=== PATIENT | female | born 1985 | race Caucasian/White ===

== ENCOUNTER 2021-10-20 13:41 | Emergency (ER) | payer BC ==
[~2021-10-20] VITALS: Ht 167.6 cm; Wt 68.2 kg
[2021-10-20 14:47] LABS: BASOPHILS # (AUTO) 0.1 X10'3 (0-0.2); BASOPHILS % (AUTO) 0.7 % (0-1); EOSINOPHILS # (AUTO) 0.1 X10'3 (0-0.9); EOSINOPHILS % (AUTO) 1.3 % (0-6); HEMATOCRIT 42.3 % (35.0-45.0); HEMOGLOBIN 14.2 g/dl (12.0-16.0); LYMPHOCYTES # (AUTO) 1.5 X10'3 (1.1-4.8); LYMPHOCYTES % (AUTO) 22.4 % (21-51); MEAN CORPUSCULAR HEMOGLOBIN 27.1 PG (27.0-31.0); MEAN CORPUSCULAR HGB CONC 33.6 g/dL (33.0-36.5); MEAN CORPUSCULAR VOLUME 80.7 FL (78-98); MEAN PLATELET VOLUME 9.6 FL (7.4-10.4); MONOCYTES # (AUTO) 0.6 X10'3 (0-0.9); MONOCYTES % (AUTO) 8.3 % (2-12); NEUTROPHILS # (AUTO) 4.6 X10'3 (1.8-7.7); NEUTROPHILS % (AUTO) 67.3 % (42-75); PLATELET COUNT 282 X10'3 (140-440); RED BLOOD COUNT 5.24 X10'6 (4.20-5.60); RED CELL DISTRIBUTION WIDTH 15.1 % (11.5-14.5); WHITE BLOOD COUNT 6.9 X10'3 (4.5-11.0)
[2021-10-20 14:58] LABS: ALBUMIN 3.8 G/DL (3.4-5.0); ALBUMIN/GLOBULIN RATIO 0.9 (1.1-1.5); ALKALINE PHOSPHATASE 122 IU/L (46-116); ANION GAP 16 (8-16); ASPARTATE AMINO TRANSFERASE 134 U/L (10-37); BILIRUBIN,TOTAL 1.2 MG/DL (0.1-1.0); BLOOD UREA NITROGEN 12 MG/DL (7-18); BUN/CREATININE RATIO 14.5 (6.6-38.0); CALCIUM 9.2 MG/DL (8.5-10.1); CHLORIDE 104 MMOL/L (99-107); CREATININE 0.83 MG/DL (0.40-0.90); GLUCOSE 87 MG/DL (70-104); POTASSIUM 3.2 MMOL/L (3.5-5.1); SODIUM 141 MMOL/L (135-145); TOTAL CARBON DIOXIDE 21.5 MMOL/L (24-32); TOTAL PROTEIN 8.1 G/DL (6.4-8.2); eGFR 79 ML/MIN
[2021-10-20 15:07] LABS: ETHANOL < 0.010 GM/DL (0.0-0.010)
[2021-10-20] MEDS ORDERED: LORazepam 2 mg/ml vial IM ONE (15:15)
[2021-10-20 15:26] LABS: ALANINE AMINOTRANSFERASE 224 U/L (12-78)
[2021-10-20] MEDS ORDERED: NO HOME MEDS (15:42)
[2021-10-20 15:44] LABS: URINE HCG NEGATIVE (NEG)
[2021-10-20 15:47] LABS: CLARITY,URINE CLOUDY (Clear); COLOR,URINE YELLOW (Yellow); GLUCOSE, URINE NEGATIVE (Neg); KETONES,URINE >=80 mg/dl (Neg); LEUKOCYTE ESTERASE ,URINE SMALL (Neg); NITRITES, URINE NEGATIVE (Neg); OCCULT BLOOD,URINE MODERATE (Neg); PROTEIN,URINE 30 mg/dl (Neg)
[2021-10-20 15:50] LABS: UA COLLECTION TYPE CLN CATCH MIDSTREAM
[2021-10-20 15:52] LABS: WBC,URINE 50-100 /HPF (0-4)
[2021-10-20 15:53] LABS: BACTERIA,URINE 4+ /HPF (Neg); MUCUS STRANDS NONE SEEN /LPF (Neg); SQUAMOUS EPITHELIAL CELL,UR MANY /LPF (FEW)
[2021-10-20 15:54] LABS: RBC,URINE 20-50 /HPF (0-2)
[2021-10-20 15:56] LABS: URINE AMPHETAMINE SCREEN NEGATIVE (Neg); URINE BARBITUATE SCREEN NEGATIVE (Neg); URINE BENZODIAZEPINES SCREEN NEGATIVE (Neg); URINE CANNABINOID SCREEN NEGATIVE (Neg); URINE COCAINE SCREEN NEGATIVE (Neg); URINE METHADONE SCREEN NEGATIVE (Neg); URINE OPIATE SCREEN NEGATIVE (Neg); URINE PHENCYCLIDINE SCREEN NEGATIVE (Neg)
[2021-10-20 16:20] LABS: ACETAMINOPHEN < 2.0 UG/ML (10-30)
[2021-10-20] MEDS ORDERED: POTASSIUM BICARB 20meq eff tab 20 MEQ TABLET.EFF PO ONE (16:40)
--- NOTE | 2021-10-20 19:00 | NUR ---
The patient is resting on her bed and her boyfriend, Jad, is at the bedside. He is very anxious about her mental health and stated he does not feel he can provide the level of care she needs. He reports she has not eaten hardly anything for a week and she has not showered in as many days. He would like to be contacted by [facility] when she is assessed. THe patient made no attempt to eat her dinner.
--- NOTE | 2021-10-20 21:03 | NUR ---
Deonte, Jad Ferguson, .
--- NOTE | 2021-10-20 21:04 | NUR ---
One to one with the patient. She has a flat affect. Her replies were appropriate to what was asked but they were minimal, soft and monotone. She had difficulty stating the correct month and year. She stated she did not know why she was not eating or showering but only stated that she was doing well. She denies history of being in a psychiatric hospital. She denies depression or psychosis. She denies taking medications at home.
--- NOTE | 2021-10-20 21:06 | NUR ---
Packet sent to [facility]
--- NOTE | 2021-10-20 22:39 | NUR ---
The patient appears to be sleeping
--- NOTE | 2021-10-21 00:30 | NUR ---
The patient appears to be sleeping
--- NOTE | 2021-10-21 01:57 | NUR ---
The patient appears to be sleeping
--- NOTE | 2021-10-21 03:56 | NUR ---
The patient appears to be sleeping
--- NOTE | 2021-10-21 05:01 | NUR ---
The patient appears to be sleeping
--- NOTE | 2021-10-21 06:30 | NUR ---
PATIENT RECEIVED SLEEPING IN BED UPON SHIFT CHANGE. NO S/S OF DISTRESS. RESPIRATIONS EVEN, UNLABORED. WILL CONTINUE TO MONITOR.
--- NOTE | 2021-10-21 08:35 | NUR ---
PATIENT NOTED SITTING IN BED AT THIS TIME. SHE RESPONDS MINIMALLY TO DIRECT QUESTIONS ONLY. DOES NOT APPEAR TO BE RESPONDING TO INTERNAL STIMULI. PATIENT ENCOURAGED TO EAT BREAKFAST, HOWEVER SHE IS DECLINING AT THIS TIME. PATIENT CONTINUES TO REQURE ENCOURAGEMENT TO CONSUME FLUIDS. SHE WAS COOPERATIVE WITH AM ASSESSMENT. WILL CONTINUE TO MONITOR.
--- NOTE | 2021-10-21 10:30 | NUR ---
PATIENT CONTINUES SLEEPING SUPINE IN BED AT THIS TIME. NO CHANGES NOTED. PATIENT CONTINUES TO REQUIRE ENCOURAGEMENT AND PROMPTING TO DRINK FLUIDS.
--- NOTE | 2021-10-21 12:35 | NUR ---
PATIENT BEING EVALUATED BY [facility] AT THIS TIME. SHE CONTINUES SITTING IN HER ROOM WITH NO S/S OF DISTRESS. WILL CONTINUE TO MONITOR.
--- NOTE | 2021-10-21 14:30 | NUR ---
PATIENT REFUSED HER LUNCH TRAY DESPITE ENCOURAGEMENT. SHE CONTINUES TO REQUIRE PROMPTING AND ENCOURAGEMENT TO EAT, DRINK, AND PERFORM ADL'S. NO S/S OF DISTRESS. WILL CONTINUE TO MONITOR.
--- NOTE | 2021-10-21 15:45 | NUR ---
MICKIE WOODARD CONTACTED REGARDING PATIENT'S STATUS. PENDING RETURN PHONE CALL.
[2021-10-21] MEDS ORDERED: LORazepam 2 mg/ml vial IM ONE (16:40)
--- NOTE | 2021-10-21 16:40 | NUR ---
PATIENT GIVEN ONE TIME ORDER OF IM ATIVAN PER ORDER BY DR. BAUTISTA. PATIENT CONTINEUS RESTING IN BED AT THIS TIME. SHE WAS ENCOURAGED TO DRINK SOME JUICE AND A FEW SIPS OF WATER. NO CHANGES NOTED.
--- NOTE | 2021-10-21 19:00 | NUR ---
Pt has a flat affect. Her replies were appropriate to what was asked but they were minimal, soft and monotone. She stated she did not know why she was not eating or showering but only stated that she was doing well. She denies history of being in a psychiatric hospital. She denies depression or psychosis. She denies taking medications at home.
--- NOTE | 2021-10-21 20:05 | NUR ---
Pt boyfriend here at the bedside, pt was able to eat half a peanut butter and jelly sandwhich. Boyfriend seemed concerned about her well being. pt requested a shower however was told we had clothes she could use. Pt smiling and went back to her bed.
--- NOTE | 2021-10-21 23:22 | NUR ---
Pt appears to be sleeping.
--- NOTE | 2021-10-22 01:10 | NUR ---
Pt appears to be sleeping.
--- NOTE | 2021-10-22 04:02 | NUR ---
Pt lying awake, no distress noted.
--- NOTE | 2021-10-22 06:30 | NUR ---
PATIENT RECEIVED SLEEPING IN BED AT THIS TIME. SHE IS NOTED LYING SUPINE, RESPIRATIONS EVEN, UNLABORED. WILL CONTINUE TO MONITOR.
--- NOTE | 2021-10-22 08:30 | NUR ---
PATIENT CONTINUES TO REQUIRE PROMPTING AND ENCOURAGEMENT TO EAT BREAKFAST. SHE REFUSED TO EAT ANY OF HER FOOD THIS MORNING. PATIENT NOTED LYING SUPINE IN BED. PATIENT IS A&O TO SELF, UNABLE TO ANSWER SIMPLE QUESTIONS AND COMMANDS. NO S/S OF DISTRESS. WILL CONTINUE TO MONITOR.
--- NOTE | 2021-10-22 10:20 | NUR ---
PATIENT SLEEPING IN BED AT THIS TIME. WHEN STAFF ASKED PATIENT TO GO TO THE RESTROOM AND PERFORM BASIC HYGIENE CARE PATIENT REFUSED. SHE CONTINUES TO RESPOND MINIMALLUY WITH A FLAT AFFECT. SHE CONTINUES TO REQUIRE PROMPTING TO CONSUME FLUIDS.
[2021-10-22] MEDS ORDERED: normal saline 1000ML IV soln IVB ONE (10:30)
--- NOTE | 2021-10-22 10:46 | NUR ---
PATIENT REFUSED TO GO TO CAT SCAN PER ORDER. PATIENT INFORMED OF IMPORTANCE AND REASONING FOR CAT SCAN AND CONTINUES TO REFUSE. SHE IS LYING IN BED AT THIS TIME. WILL CONTINUE TO MONITOR.
--- NOTE | 2021-10-22 11:20 | NUR ---
PERIPHERAL 20G IV PLACED TO L HAND AT 1120 PER ORDER. PATIENT TOLERATED WELL WITH NO C/O PAIN. SKIN IS CDI WITH NO S/S OF REDNESS, SWELLING, OR IRRITATION. IV BOLUS STARTED PER ORDER. PATIENT RESTING IN BED AT THIS TIME. NO S/S OF DISTRESS. WILL CONTINUE TO MONITOR.
--- NOTE | 2021-10-22 13:30 | NUR ---
PATIENT REFUSED TO EAT LUNCH PROVIDED TO HER DESPITE CONSTANT ENCOURAGEMENT AND PROMPTING. WHEN ASKED IF PATIENT IS HUNGRY, SHE RESPONDED, "I AM FINE". PATIENT CONTINUES LYING IN BED WITH NO S/S OF DISTRESS. WILL CONTINUE TO MONITOR.
--- NOTE | 2021-10-22 13:30 | NUR ---
2L IV BOLUS COMPLETED. IV SALINE LOCKED AND SECURED. SITE IS CDI, NO REDNESS, SWELLING, OR IRRITATION NOTED. WILL CONTINUE TO MONITOR.
--- NOTE | 2021-10-22 14:30 | NUR ---
PATIENT AMBULATED TO THE RESTROOM WITH ASSISTANCE FROM STAFF. SHE WAS GIVEN CLEAN SCRUBS WITH CLEAN LINEN APPLIED TO BED. PATIENT AMBULATED WITH A SLIGHTLY WEAK GAIT. NO S/S OF DISTRESS. WILL CONTINUE TO MONITOR.
[2021-10-22 14:43] LABS: D-DIMER 0.72 MG/L FEU (0-0.50)
[2021-10-22 14:45] LABS: BASOPHILS % (AUTO) 0.8 % (0-1); EOSINOPHILS # (AUTO) 0.1 X10'3 (0-0.9); EOSINOPHILS % (AUTO) 2.4 % (0-6); HEMATOCRIT 35.1 % (35.0-45.0); HEMOGLOBIN 11.9 g/dl (12.0-16.0); LYMPHOCYTES # (AUTO) 1.2 X10'3 (1.1-4.8); MEAN CORPUSCULAR HEMOGLOBIN 27.5 PG (27.0-31.0); MEAN CORPUSCULAR HGB CONC 33.8 g/dL (33.0-36.5); MEAN CORPUSCULAR VOLUME 81.2 FL (78-98); MEAN PLATELET VOLUME 9.5 FL (7.4-10.4); MONOCYTES # (AUTO) 0.4 X10'3 (0-0.9); MONOCYTES % (AUTO) 8.3 % (2-12); NEUTROPHILS # (AUTO) 3.3 X10'3 (1.8-7.7); NEUTROPHILS % (AUTO) 64.5 % (42-75); PLATELET COUNT 192 X10'3 (140-440); RED BLOOD COUNT 4.32 X10'6 (4.20-5.60); WHITE BLOOD COUNT 5.2 X10'3 (4.5-11.0)
[2021-10-22 14:47] LABS: ALANINE AMINOTRANSFERASE 224 U/L (12-78); ALBUMIN 2.8 G/DL (3.4-5.0); ALBUMIN/GLOBULIN RATIO 0.9 (1.1-1.5); ALKALINE PHOSPHATASE 98 IU/L (46-116); ANION GAP 11 (8-16); ASPARTATE AMINO TRANSFERASE 125 U/L (10-37); BILIRUBIN,TOTAL 0.6 MG/DL (0.1-1.0); BLOOD UREA NITROGEN 10 MG/DL (7-18); BUN/CREATININE RATIO 14.7 (6.6-38.0); CALCIUM 7.8 MG/DL (8.5-10.1); CHLORIDE 108 MMOL/L (99-107); CREATININE 0.68 MG/DL (0.40-0.90); GLUCOSE 96 MG/DL (70-104); SODIUM 142 MMOL/L (135-145); TOTAL CARBON DIOXIDE 22.8 MMOL/L (24-32); TOTAL PROTEIN 5.8 G/DL (6.4-8.2); eGFR > 90 ML/MIN
[2021-10-22 14:53] LABS: POTASSIUM 2.9 MMOL/L (3.5-5.1)
--- NOTE | 2021-10-22 14:54 | NUR ---
NOTIFIED OF POTASSIUM LEVEL OF 2.9 MMOL/L PER FISH PATTERN HANGER AT 1454. DR. GUERRERO NOTIFIED. WILL CONTINUE TO MONITOR.
[2021-10-22] MEDS ORDERED: potassium Cl 20 mEq SR tablet PO STA (14:59)
[2021-10-22] MEDS ORDERED: magnesium oxide 400mg tablet PO ONE (15:00)
[2021-10-22 15:40] LABS: CLARITY,URINE CLOUDY (Clear); GLUCOSE, URINE NEGATIVE (Neg); KETONES,URINE >=80 mg/dl (Neg); LEUKOCYTE ESTERASE ,URINE SMALL (Neg); NITRITES, URINE NEGATIVE (Neg); OCCULT BLOOD,URINE NEGATIVE (Neg); PROTEIN,URINE NEGATIVE (Neg)
[2021-10-22 15:43] LABS: COLOR,URINE DARK YELLOW (Yellow); UA COLLECTION TYPE VOIDED
[2021-10-22 15:46] LABS: MUCUS STRANDS MANY /LPF (Neg); SQUAMOUS EPITHELIAL CELL,UR MANY /LPF (FEW)
[2021-10-22 15:47] LABS: TRANSITIONAL EPI CELLS,URINE MODERATE /HPF
[2021-10-22 15:59] LABS: CAL OXALATE CRYSTALS 2+ /HPF (NEGATIVE)
[2021-10-22 16:01] LABS: BACTERIA,URINE 3+ /HPF (Neg); RBC,URINE 0-2 /HPF (0-2)
--- NOTE | 2021-10-22 16:35 | NUR ---
PATIENT OBSERVED SLEEPING SUPINE IN BED AT THIS TIME. NO S/S OF DISTRESS OR CHANGES NOTED. WILL CONTINUE TO MONITOR.
--- NOTE | 2021-10-22 18:58 | NUR ---
Pt lying in bed sleeping at this time, no distress noted. Boyfriend at the bedside.
--- NOTE | 2021-10-22 20:32 | NUR ---
Pt awake and set up dinner tray, pt states, "I guess I should try to eat something." This RN cut her food up and opened her drink, however Pt is staring with a blank face. Pt is confused and is oriented to self only.
--- NOTE | 2021-10-22 22:24 | NUR ---
pt appears to be sleeping.
--- NOTE | 2021-10-23 00:37 | NUR ---
Pt appears to be sleeping.
--- NOTE | 2021-10-23 04:16 | NUR ---
Pt up to use the restroom and appears to be confused with flat affect.
--- NOTE | 2021-10-23 06:30 | NUR ---
PATIENT RECEIVED RESTING QUIETLY IN BED THIS MORNING. SHE WAS OBSERVED STARING AT THE WALL IN HER ROOM, NOTED WITH SLOW RESPONSES TO STIMULI. PATIENT IS A&O TO SELF, RESPONDS MINIMALLY AND ONLY PROMPTED. NO S/S OF DISTRESS. WILL CONTINUE TO MONITOR.
[2021-10-23] MEDS ORDERED: OLANZapine 5mg rapidly disint. tablet PO ONE (08:10)
--- NOTE | 2021-10-23 08:20 | NUR ---
PATIENT BEING TRANSPORTED TO CT BY [employer] TECHNICIAN AND SECURITY AT THIS TIME.
[2021-10-23] MEDS ORDERED: potassium CL 20mEq in D5-1/2NS 1,000 ML IV SCH (08:35)
--- NOTE | 2021-10-23 08:50 | NUR ---
PATIENT RETURNED TO OVERFLOW FROM CT AT THIS TIME. SHE CONTINUES TO REFUSE TO EAT BREAKFAST OR DRINK FLUIDS DESPITE ENCOURAGEMENT AND PROMPTING. PATIENT OFFERED SNACKS AND ALTERNATIVES WHICH SHE CONTINUES TO DECLINE. MD MADE AWARE. WILL CONTINUE TO MONITOR.
[2021-10-23 09:35] LABS: BASOPHILS % (AUTO) 0.8 % (0-1); EOSINOPHILS # (AUTO) 0.2 X10'3 (0-0.9); HEMATOCRIT 38.8 % (35.0-45.0); HEMOGLOBIN 13.1 g/dl (12.0-16.0); LYMPHOCYTES # (AUTO) 1.5 X10'3 (1.1-4.8); MEAN CORPUSCULAR HEMOGLOBIN 27.4 PG (27.0-31.0); MEAN CORPUSCULAR HGB CONC 33.8 g/dL (33.0-36.5); MEAN CORPUSCULAR VOLUME 81.2 FL (78-98); MEAN PLATELET VOLUME 9.3 FL (7.4-10.4); MONOCYTES # (AUTO) 0.4 X10'3 (0-0.9); MONOCYTES % (AUTO) 6.6 % (2-12); NEUTROPHILS # (AUTO) 3.8 X10'3 (1.8-7.7); NEUTROPHILS % (AUTO) 64.6 % (42-75); PLATELET COUNT 217 X10'3 (140-440); RED BLOOD COUNT 4.78 X10'6 (4.20-5.60); RED CELL DISTRIBUTION WIDTH 15.3 % (11.5-14.5); WHITE BLOOD COUNT 5.9 X10'3 (4.5-11.0)
[2021-10-23 09:48] LABS: ALANINE AMINOTRANSFERASE 229 U/L (12-78); ALBUMIN 3.5 G/DL (3.4-5.0); ALKALINE PHOSPHATASE 111 IU/L (46-116); ANION GAP 13 (8-16); ASPARTATE AMINO TRANSFERASE 90 U/L (10-37); BILIRUBIN,TOTAL 0.6 MG/DL (0.1-1.0); BLOOD UREA NITROGEN 6 MG/DL (7-18); CALCIUM 9.1 MG/DL (8.5-10.1); CHLORIDE 105 MMOL/L (99-107); CREATININE 0.67 MG/DL (0.40-0.90); GLUCOSE 108 MG/DL (70-104); POTASSIUM 3.2 MMOL/L (3.5-5.1); SODIUM 141 MMOL/L (135-145); TOTAL CARBON DIOXIDE 22.6 MMOL/L (24-32); eGFR > 90 ML/MIN
--- NOTE | 2021-10-23 10:35 | NUR ---
PATIENT CONTINUES SLEEPING IN BED AT THIS TIME. RESPIRATIONS EVEN, UNLABORED. WILL CONTINUE TO MONITOR.
--- NOTE | 2021-10-23 12:30 | NUR ---
PATIENT REFUSED TO EAT LUNCH DESPITE ENCOURAGEMENT. MD AWARE OF REFUSALS. PATIENT CONTINUES SLEEPING AT THIS TIME. NO S/S OF DISTRESS.
--- NOTE | 2021-10-23 14:35 | NUR ---
PATIENT OBSERVED SLEEPING SUPINE IN HER BED. RESPIRATIONS EVEN, UNLABORED. NO CHANGES AT THIS TIME.
--- NOTE | 2021-10-23 16:30 | NUR ---
PATIENT CONTINUES SLEEPING IN BED WITH NO CHANGES NOTED. NO S/S OF DISTRESS. WILL CONTINUE TO MONITOR.
--- NOTE | 2021-10-23 18:00 | NUR ---
PATIENTS SIGNIFICANT OTHER AT BEDSIDE AT THIS TIME
--- NOTE | 2021-10-23 20:30 | NUR ---
Recived patient at 1830. Patient resting in bed, patient bf sitting by her side. Patient continues to refuse to eat. Attempted to give a salad and apple sauce. Will continue to try and push fluids.
[2021-10-23] MEDS: OLANZapine 5mg rapidly disint. tablet PO SCH (20:58)
--- NOTE | 2021-10-23 22:30 | NUR ---
Patient observed laying in bed resting. Patient began to uncover herself and get up. Nurse asked if she needed to go to the bathroom. Patient responded no and got back into bed. Short time later patient starts getting up again. This time patient tries to walk but appears as if she has gotten stuck. Patient cant get out of swaying motion and has an incontinent episode. Patient appears embarrassed and frustrated. Nurse assist patient to bathroom and into clean clothes. Patient continues to move at a very slow pace and needs encouragemnt to keep moving forward.
--- NOTE | 2021-10-24 00:38 | NUR ---
Patient sleeping breaths even and unlabored
--- NOTE | 2021-10-24 04:29 | NUR ---
Patient currently sleeping, patient went to restroom unassisted.
--- NOTE | 2021-10-24 05:44 | NUR ---
Patient observed sleeping in bed
--- NOTE | 2021-10-24 06:53 | NUR ---
Received pt. sleeping in bed at shift change. No S/S of distress.
[2021-10-24] MEDS: OLANZapine 5mg rapidly disint. tablet PO SCH ×2 (08:28→20:00)
--- NOTE | 2021-10-24 08:49 | NUR ---
Alen levy in EDM - 10/24/21 at 0852 by KHALIF Patient states she wants her thyroid medication 1 hr. prior to breakfast. Patient is hyperverbal and is requesting discharge.
--- NOTE | 2021-10-24 09:08 | NUR ---
PT HATE A LITTLE OF HER EGGS, DRANK HER JUICE AND WAS SLOWLY DRINKING HER PROTEIN DRINK.
[2021-10-24 09:48] LABS: BASOPHILS % (AUTO) 0.8 % (0-1); EOSINOPHILS # (AUTO) 0.3 X10'3 (0-0.9); HEMATOCRIT 38.7 % (35.0-45.0); HEMOGLOBIN 12.9 g/dl (12.0-16.0); LYMPHOCYTES # (AUTO) 2.2 X10'3 (1.1-4.8); LYMPHOCYTES % (AUTO) 34.1 % (21-51); MEAN CORPUSCULAR HEMOGLOBIN 27.2 PG (27.0-31.0); MEAN CORPUSCULAR HGB CONC 33.3 g/dL (33.0-36.5); MEAN CORPUSCULAR VOLUME 81.6 FL (78-98); MEAN PLATELET VOLUME 9.5 FL (7.4-10.4); MONOCYTES # (AUTO) 0.4 X10'3 (0-0.9); MONOCYTES % (AUTO) 6.8 % (2-12); NEUTROPHILS # (AUTO) 3.5 X10'3 (1.8-7.7); NEUTROPHILS % (AUTO) 54.3 % (42-75); PLATELET COUNT 188 X10'3 (140-440); RED BLOOD COUNT 4.74 X10'6 (4.20-5.60); RED CELL DISTRIBUTION WIDTH 15.1 % (11.5-14.5); WHITE BLOOD COUNT 6.4 X10'3 (4.5-11.0)
[2021-10-24 10:11] LABS: ALANINE AMINOTRANSFERASE 172 U/L (12-78); ALBUMIN 3.1 G/DL (3.4-5.0); ALKALINE PHOSPHATASE 100 IU/L (46-116); ANION GAP 7 (8-16); ASPARTATE AMINO TRANSFERASE 56 U/L (10-37); BILIRUBIN,TOTAL 0.5 MG/DL (0.1-1.0); BLOOD UREA NITROGEN 8 MG/DL (7-18); BUN/CREATININE RATIO 9.6 (6.6-38.0); CHLORIDE 106 MMOL/L (99-107); CREATININE 0.83 MG/DL (0.40-0.90); GLUCOSE 119 MG/DL (70-104); SODIUM 139 MMOL/L (135-145); TOTAL CARBON DIOXIDE 25.6 MMOL/L (24-32); TOTAL PROTEIN 6.3 G/DL (6.4-8.2); eGFR 79 ML/MIN
[2021-10-24] MEDS: potassium CL 10mEq/100ml bag 100 ML IV PRN ×7 (10:46→20:48)
--- NOTE | 2021-10-24 11:24 | NUR ---
The laboratory called with a critical K+ of 3.0. Notified Dr. Solis who ordered K+ replacement I.V. Patient's boyfriend and his mother are at bedside. Patient has her eyes open, but she is nonverbal. Flat affect.
--- NOTE | 2021-10-24 12:26 | NUR ---
Contacted [facility] for order for Ativan t.i.d. Patient is nearly catatonic, not eating, nonverbal. Charge nurse will contact provider for orders.
[2021-10-24] MEDS ORDERED: LORazepam 1 MG tablet PO PRN (12:35)
--- NOTE | 2021-10-24 13:33 | NUR ---
Patient ate half of a sandwich. Family left facility
--- NOTE | 2021-10-24 15:38 | NUR ---
Patient appears to be sleeping supine in bed. Respirations are even and unlabored.
--- NOTE | 2021-10-24 17:02 | NUR ---
Patient lying in bed all day without voiding. Attempted to wake patient and she opened her eyes. Requested that patient get up and go to the bathroom, but patient just went back to sleep. Blood pressure is high at 152/103. K+ replacement is infusing. Patient appears catatonic.
--- NOTE | 2021-10-24 17:18 | NUR ---
Patient was able to get up to the bathroom and void with two person assist.
--- NOTE | 2021-10-24 18:30 | NUR ---
PT pitting up on bed eating. Pt finished 75% of dinner. Pt is alert and answers questions appropriately. Vitals signs WNL. Lungs sounds clear bilaterally. WORKERS' COMPENSATION MEDIATOR <3, no edema observed, sensation intact ,ROM equal bilaterally. Pt states she feels "very tired." She denies SI/HI/AH/VH. She is appropriate in conversation and makes good eye contact.
--- NOTE | 2021-10-24 20:26 | NUR ---
Last bag (bag 8 of 8 potassium hung)
--- NOTE | 2021-10-24 21:20 | NUR ---
Last bag of potassium completed infusuin. Lab notified to redraw potassium level at 2330.
--- NOTE | 2021-10-25 01:00 | NUR ---
Pt asleep respirations even and unlabored.
--- NOTE | 2021-10-25 02:30 | NUR ---
Pt asleep, respirations wNL
--- NOTE | 2021-10-25 04:10 | NUR ---
blood draw, recheck potassium after completion of replacement. sent to lab.
--- NOTE | 2021-10-25 04:28 | NUR ---
Pt up to use the restroom. Pt voided. Pt ambulates without assistance and is resposive to questions.
--- NOTE | 2021-10-25 05:17 | NUR ---
Potassium level 4.0
[2021-10-25] MEDS: K and/or MAG REPLACEMENT MC SCH (08:00)
--- NOTE | 2021-10-25 08:30 | NUR ---
Pt. awake at bedside. Pt. ate approx 50% of her tray. pt. drank juice box and silk drink. Pt. smiling upon greeting. Pt. reports sleeping well. Pt. denies SI/HI, A/V hallucinations.
[2021-10-25] MEDS: OLANZapine 5mg rapidly disint. tablet PO SCH ×2 (08:40→20:01)
[2021-10-25] MEDS: potassium CL 10mEq/100ml bag 100 ML IV PRN ×3 (09:00→10:49)
--- NOTE | 2021-10-25 10:30 | NUR ---
Pt. awake and resting in supine position in bed.
--- NOTE | 2021-10-25 12:30 | NUR ---
Pt. asleep in supine position. normal R&R of respirations observed. Pt.in no apparent distress.
--- NOTE | 2021-10-25 14:30 | NUR ---
Pt.'s Zyprexa Zydis 5mg increased to TID. Pt. woken up and encouraged po fluids encouraged. Pt. drank approx 1/2 of her pitcher and ate a banana and went back to sleep.
[2021-10-25] MEDS ORDERED: OLANZapine 5mg rapidly disint. tablet PO ONE (14:45)
--- NOTE | 2021-10-25 16:30 | NUR ---
Pt. asleep in supine position.
--- NOTE | 2021-10-25 17:51 | NUR ---
Pt.'s boyfriend is at bedside visiting. Pt. is awake and conversing with him.
--- NOTE | 2021-10-25 19:44 | NUR ---
The patient ate 100% of her dinner. She denies A/V hallucinations. She denies being suicidal or depressed. Anxiety is denied. Her affect is brighter.
--- NOTE | 2021-10-25 20:46 | NUR ---
The patient appears to be sleeping
--- NOTE | 2021-10-25 23:26 | NUR ---
The patient appears to be sleeping
--- NOTE | 2021-10-26 00:54 | NUR ---
The patient appears to be sleeping
--- NOTE | 2021-10-26 02:18 | NUR ---
The patient appears to be sleeping
--- NOTE | 2021-10-26 03:28 | NUR ---
THe patient apppears to be sleeping
--- NOTE | 2021-10-26 05:02 | NUR ---
The patient appears to be sleeping
[2021-10-26] MEDS: K and/or MAG REPLACEMENT MC SCH (08:00)
[2021-10-26] MEDS: OLANZapine 5mg rapidly disint. tablet PO SCH ×3 (08:09→22:06)
--- NOTE | 2021-10-26 08:30 | NUR ---
Pt. awake and walking park with neighbor. Pt. observed smiling and laughing. Pt. ate 90% of her breakfast. K+ level drawn and WNL at 3.9
[2021-10-26] MEDS ORDERED: docusate sod 100mg capsule PO ONE (09:35)
--- NOTE | 2021-10-26 10:30 | NUR ---
Pt. awake and washing hair with shower cap.
--- NOTE | 2021-10-26 12:30 | NUR ---
Pt. awake and eating lunch at bedside.
--- NOTE | 2021-10-26 14:30 | NUR ---
Pt. sleeping in supine position. Pt. in no apparent distress. Normal R&R of respirations observed.
--- NOTE | 2021-10-26 16:30 | NUR ---
Pt. observed sleeping in supine position. normal R&R of respirations observed.
--- NOTE | 2021-10-26 18:28 | NUR ---
Pt. awake at bedside and eating dinner.
--- NOTE | 2021-10-26 19:00 | NUR ---
Patient is sleeping quietly. No distress.
--- NOTE | 2021-10-26 20:12 | NUR ---
Patient is continuing to sleep quietly. In view from nurses station. Frequent rounding for patient safety.
--- NOTE | 2021-10-26 22:15 | NUR ---
Mid fowlers in bed, sleeping quietly. Patient has self repositioned in bed.
--- NOTE | 2021-10-27 02:34 | NUR ---
Patient is sleeping quietly, mid fowlers position in bed.
--- NOTE | 2021-10-27 03:15 | NUR ---
Patient remains sleeping, good color, W/D. Low fowlers position in bed.
--- NOTE | 2021-10-27 04:30 | NUR ---
Patient sleeping quietly, low fowlers position in bed.
--- NOTE | 2021-10-27 06:34 | NUR ---
Patient sleeping quietly, no distress.
--- NOTE | 2021-10-27 06:45 | NUR ---
Patient sleeping supine. No distress observed. Continue to monitor.
[2021-10-27] MEDS: K and/or MAG REPLACEMENT MC SCH (08:00)
--- NOTE | 2021-10-27 08:20 | NUR ---
Patient eating breakfast. Patient smiling and appears so much better than when RN saw her last week. Patient stated she is doing well. Continue to monitor.
[2021-10-27] MEDS: OLANZapine 5mg rapidly disint. tablet PO SCH ×3 (08:23→21:03)
--- NOTE | 2021-10-27 08:46 | NUR ---
PATIENT OBSERVED AMBULATING TO THE RESTROOM WITH A STEADY GAIT. PATIENT CONSUMED 100% OF HER BREAKFAST THIS MORNING INDEPENDENTLY. SHE IS NOTED TO BE A&O X4, WITH NO COMPLAINTS AT THIS TIME.
--- NOTE | 2021-10-27 10:44 | NUR ---
Mother called for patient. Patient did not want to talk to mom at this time. Patient stated possibly later. Continue to monitor.
--- NOTE | 2021-10-27 12:13 | NUR ---
Patient eating lunch. No distress observed. Continue to monitor.
--- NOTE | 2021-10-27 14:19 | NUR ---
ARMANDO, Rex, speaking with patient. No distress observed. Continue to monitor.
--- NOTE | 2021-10-27 16:11 | NUR ---
Patient sleeping on right side. No distress observed. Continue to monitor.
--- NOTE | 2021-10-27 17:31 | NUR ---
Patient awake and reclining in bed. No distress observed. Continue to monitor.
--- NOTE | 2021-10-27 20:30 | NUR ---
Patient recevied laying in bed talking to bf. Patient yinka she is feeling much better today.
--- NOTE | 2021-10-27 22:31 | NUR ---
Patient resting quietly breaths even and unlabored
--- NOTE | 2021-10-28 00:36 | NUR ---
Patient transfered herself to bathroom and went back to bed.
--- NOTE | 2021-10-28 02:41 | NUR ---
Patient laying in bed sleeping. breaths are even and unlabored.
--- NOTE | 2021-10-28 04:36 | NUR ---
Patient is currently resting, Patient has gotten up twice and taken herself to the restroom
--- NOTE | 2021-10-28 05:58 | NUR ---
Patient is currently sleeping. Breaths are even and unlabored
--- NOTE | 2021-10-28 06:30 | NUR ---
PATIENT RECEIVED SLEEPING SUPINE IN BED AT SHIFT CHANGE. RESPIRATIONS EVEN, UNLABORED. WILL CONTINUE TO MONITOR.
--- NOTE | 2021-10-28 08:35 | NUR ---
PATIENT AWOKEN TO EAT BREAKFAST. SHE WAS RECEPTIVE TO MORNING ASSESSMENT AND RTN MEDICATION. PATIENT OBSERVED SMILING AND ENDORSED TO THIS SUPERVISOR PAPER COATING THAT SHE IS "FEELING TIRED THIS MORNING". PATIENT NOTED EATING AT THIS TIME. NO S/S OF DISTRESS.
[2021-10-28] MEDS: OLANZapine 5mg rapidly disint. tablet PO SCH ×3 (08:54→20:36)
--- NOTE | 2021-10-28 10:35 | NUR ---
PATIENT CONTINUES SLEEPING SUPINE IN BED AT THIS TIME. NO CHANGES OR COMPLAINTS NOTED.
--- NOTE | 2021-10-28 12:30 | NUR ---
PATIENT OBSERVED SITTING IN HER ROOM EATING LUNCH AT THIS TIME. NO CHANGES OR S/S OF DISTRESS NOTED.
--- NOTE | 2021-10-28 14:35 | NUR ---
PATIENT CONTINUES SLEEPING IN BED AT THIS TIME. RESPIRATIONS EVEN, UNLABORED. NO CHANGES NOTED.
--- NOTE | 2021-10-28 16:30 | NUR ---
PATIENT OBSERVED SLEEPING IN BED WITH NO S/S OF DISTRESS. WILL CONTINUE TO MONITOR.
--- NOTE | 2021-10-28 17:43 | NUR ---
PATIENT'S SIGNIFICANT OTHER IS VISITING AT BEDSIDE AT THIS TIME.
[2021-10-28] MEDS ORDERED: docusate sod 100mg capsule PO ONE (20:00)
--- NOTE | 2021-10-28 20:36 | NUR ---
Patient was recevied laying in bed with her bf sitting next to her. Patient stats she is feeling much better and her appetite has come all the way back. Patient stats she is no longer having hallucinations and is looking forward to going back home. Patient confirms it has been quiet a few days since she has had a bowel movement. Patient was started on docusate 100mg today to help with constipation. Patient was given non vegan dinner tray again and only ate 25% of dinner. Bf has started bringing in food for pt so she will keep eating. Nurse was able to get some vegan snacks and patient has been eating them.
--- NOTE | 2021-10-28 22:34 | NUR ---
Patient is currently resting quietly
--- NOTE | 2021-10-29 00:30 | NUR ---
Patient is observed sleeping in bed.
--- NOTE | 2021-10-29 02:38 | NUR ---
Patient is observed sleeping. Patient has gotten up twice and self ambulated to the restroom.
--- NOTE | 2021-10-29 04:37 | NUR ---
Patient woke up and ate one of her snacks she got earlier from the kitchen. Patient is again glad she has the desire to eat again. Patient returned to sleep after eating.
--- NOTE | 2021-10-29 06:30 | NUR ---
PATIENT RECEIVED SLEEPING IN BED AT SHIFT CHANGE. NO S/S OF DISTRESS. RESPIRATIONS EVEN, UNLABORED. WILL CONTINUE TO MONITOR.
--- NOTE | 2021-10-29 08:35 | NUR ---
PATIENT PROVIDED WITH PERSONAL HYGIENE SUPPLIES AND NEW GREEN SCRUBS WHICH SHE CHANGED INTO IN THE BATHROOM. PATIENT PERFORMED PERSONAL HYGIENE CARE IN THE BATHROOM BEFORE RETREATING BACK TO HER ROOM. NEW LINENS WERE APPLIED TO BED. PATIENT NOTED EATING BREAKFAST AT THIS TIME. SHE WAS COMPLIANT WITH MORNING ASSESSMENT AND SCHEDULED MEDICATION. NO S/S OF DISTRESS OR COMPLAINTS NOTED.
[2021-10-29] MEDS: OLANZapine 5mg rapidly disint. tablet PO SCH ×3 (08:38→20:17)
--- NOTE | 2021-10-29 10:30 | NUR ---
PATIENT IS NOTED SLEEPING IN BED AT THIS TIME WITH NO S/S OF DISTRESS OR CHANGES NOTED.
--- NOTE | 2021-10-29 12:35 | NUR ---
PATIENT OBSERVED EATING LUNCH AT THIS TIME. SHE IS CALM AND POLITE DURING CONVERSATION WITH THIS SENIOR QUALITATIVE RESEARCHER. PATIENT ENDORSED THAT SHE IS "FEELING MUCH BETTER THAN BEFORE", HOWEVER, STILL FEELS THAT SHE WOULD BENEFIT FROM IN-PATIENT TREATMENT. NO COMPLAINTS OR CHANGES NOTED.
--- NOTE | 2021-10-29 14:30 | NUR ---
PATIENT WAS OBSERVED AMBULATING TO AND FROM THE RESTROOM WITH A STEADY GAIT. SHE RETREATED BACK TO BED AND IS OBSERVED RESTING IN BED AT THIS TIME. NO CHANGES NOTED.
--- NOTE | 2021-10-29 16:35 | NUR ---
PATIENT CONTINUES SLEEPING IN BED WITH NO S/S OF DISTRESS. RESPIRATIONS EVEN, UNLABORED. WILL CONTINUE TO MONITOR.
--- NOTE | 2021-10-29 17:50 | NUR ---
PATIENTS SIGNIFICANT OTHER IS VISITING AT BEDSIDE AT THIS TIME
[2021-10-29] MEDS ORDERED: magnesium hydroxide 30ml (MOM) UD suspension PO ONE (18:15)
--- NOTE | 2021-10-29 20:56 | NUR ---
Patient was recevied laying in bed talking to bf at beginning of shift. Patient stated that she still hasnt been able to have a bowel movement and wanted to take her m.o.m. Patient ate dinner and took scheduled medications. Patient was encouraged to drink water to help with movement. Patient continues to rest at this time.
--- NOTE | 2021-10-29 22:40 | NUR ---
Patient is currently sleeping breaths are even and unlabored
--- NOTE | 2021-10-30 00:41 | NUR ---
Patient is sleeping breaths are even and unlabored
--- NOTE | 2021-10-30 02:47 | NUR ---
Patient went to the bathroom. Patient has yet to have a bowel movement
--- NOTE | 2021-10-30 04:26 | NUR ---
Patient is resting quietly
[2021-10-30] MEDS: OLANZapine 5mg rapidly disint. tablet PO SCH (09:55)
--- NOTE | 2021-10-30 10:38 | NUR ---
Patient was moved from overflow to the main ER due to short staffing this morning at 0620 from room 25 to room 15.
[2021-10-30] MEDS ORDERED: OLAN5TAB3 PO (12:36)
[2021-10-30 13:21] VITALS: BP 144/96
== END 2021-10-30 13:23 | disposition home or self-care (01) ==
LOC: ER 13:42
DX: F82 Specific developmental disorder of motor function (principal); Z20.822 Contact with and (suspected) exposure to COVID-19; R44.0 Auditory hallucinations; Z86.69 Personal history of other diseases of the nervous system and sense organs
CPT/HCPCS: 36415; 76700; 80053; 80305; 80320; 80329; 81001; 81025; 83735; 84132; 84145; 84443; 85025; 85379; 86140; 87635; 96360; 96361; 96372; 99285; C9803; J2060

== ENCOUNTER 2022-02-11 07:35 | Outpatient (CLI) | payer BC ==
[~2022-02-11 07:35] MED LIST: NO HOME MEDS; OLAN5TAB3 PO
== END 2022-02-11 23:59 | disposition home or self-care (01) ==
LOC: RAD 07:35
PROVIDERS: ATTEND Nurse Practitioner Family
DX: R56.9 Unspecified convulsions (principal)
CPT/HCPCS: 95819

== ENCOUNTER 2022-03-16 09:54 | Day surgery (SDC) | payer BC ==
[2022-03-09 12:07] LABS: BASOPHILS % (AUTO) 0.7 % (0-1); EOSINOPHILS # (AUTO) 0.2 X10'3 (0-0.9); EOSINOPHILS % (AUTO) 2.9 % (0-6); LYMPHOCYTES # (AUTO) 1.7 X10'3 (1.1-4.8); MEAN CORPUSCULAR HGB CONC 32.8 g/dL (33.0-36.5); MEAN CORPUSCULAR VOLUME 79.3 FL (78-98); MEAN PLATELET VOLUME 8.5 FL (7.4-10.4); MONOCYTES # (AUTO) 0.4 X10'3 (0-0.9); MONOCYTES % (AUTO) 6.8 % (2-12); NEUTROPHILS # (AUTO) 2.9 X10'3 (1.8-7.7); NEUTROPHILS % (AUTO) 56.6 % (42-75); PRE OP HEMOGLOBIN 13.1 g/dL (12.0-16.0); PRE OP PLATELET COUNT 251 X10'3 (140-440); RED BLOOD COUNT 5.05 X10'6 (4.20-5.60)
[2022-03-09 12:17] LABS: HCG SERUM QL NEGATIVE
[2022-03-09 12:24] LABS: ALBUMIN 3.6 G/DL (3.4-5.0); ALBUMIN/GLOBULIN RATIO 0.9 (1.1-1.5); ALKALINE PHOSPHATASE 89 IU/L (46-116); BLOOD UREA NITROGEN 7 MG/DL (7-18); BUN/CREATININE RATIO 8.9 (6.6-38.0); CHLORIDE 104 MMOL/L (99-107); CREATININE 0.79 MG/DL (0.40-0.90); PRE OP ALT 30 U/L (30-65); PRE OP ANION GAP 9 (8-16); PRE OP AST 20 U/L (10-37); PRE OP BILIRUB, TOTAL 0.4 MG/DL (0.0-1.0); PRE OP GLUCOSE 90 MG/DL (70-104); PRE OP POTASSIUM 4.1 MMOL/L (3.4-5.1); PRE OP SODIUM 139 MMOL/L (135-145); TOTAL CARBON DIOXIDE 26.4 MMOL/L (24-32); TOTAL PROTEIN 7.5 G/DL (6.4-8.2); eGFR 83 ML/MIN
[~2022-03-16] VITALS: Ht 165.1 cm; Wt 86.9 kg
[2022-03-16] VITALS (18 sets, daily range): BP systolic 112–149; BP diastolic 66–101
[~2022-03-16 09:54] MED LIST changes: +CYAN50003 PO; +KEP500T PO; +LAMO25TA72 PO; +MULT-1085 PO; -NO HOME MEDS; +OLAN20TA3 PO; -OLAN5TAB3 PO; +ceFOXitin 2GM-NS 100mL ADDvant 100 ML IV ONE; +famotidine 20mg tablet PO ONE; +ringers solution, lacted 1,000 ML IV SCH
[2022-03-16] MEDS ORDERED: LURA40TA2 PO (10:36)
[2022-03-16] MEDS ORDERED: hydrALAZINE 20mg/ml inj. IV PRN (12:05)
[2022-03-16] MEDS ORDERED: morphine 2 MG/ML inj. syringe IV PRN (12:05)
[2022-03-16] MEDS ORDERED: ringers solution, lacted 1,000 ML IV SCH (12:05)
[2022-03-16] MEDS ORDERED: fentaNYL/PF 50MCG/1 ML 2ML syringe IV PRN ×2 (12:05)
[2022-03-16] MEDS ORDERED: ondansetron/PF 4mg/2ml inj IV PRN (12:05)
[2022-03-16] MEDS ORDERED: labetalol 20mg/4ml (5mg/ml) syringe IV PRN (12:05)
[2022-03-16] MEDS ORDERED: morphine 4 MG/ML inj SYRINge IV PRN (12:05)
[2022-03-16] MEDS ORDERED: midazolam 1 mg/ML 2ml injection ONE (13:45)
[2022-03-16] MEDS ORDERED: ondansetron/PF 4mg/2ml inj ONE ×2 (13:46→14:08)
[2022-03-16] MEDS ORDERED: morphine 10mg/ml inj. ONE (13:46)
[2022-03-16] MEDS ORDERED: rocuronium 10mg/ml inj IV ONE (13:46)
[2022-03-16] MEDS ORDERED: neostigmine methylsulfate 1 MG/ML 10ml vial ONE (13:57)
[2022-03-16] MEDS ORDERED: sevoflurane 250ml liquid IH ONE (13:57)
[2022-03-16] MEDS ORDERED: LIDOcaine 1% (10mg/ml)w/preservative inj. 20ml MDV ONE (13:57)
[2022-03-16] MEDS ORDERED: dexamethasone sod phosphate 4mg/ml inj. ONE (14:07)
[2022-03-16] MEDS ORDERED: propofol inj 20 ML IV ONE (14:09)
[2022-03-16] MEDS ORDERED: glycopyrrolate 0.2mg/ml inj ONE (14:09)
[2022-03-16] MEDS ORDERED: BUPIVAcaine/PF 2.5mg/ml (0.25%) 10ml vial ONE (14:13)
[2022-03-16] MEDS ORDERED: ketorolac trometh. 30mg/ml inj. ONE (14:33)
[2022-03-16] MEDS ORDERED: labetalol 20mg/4ml (5mg/ml) syringe IV ONE (14:38)
--- NOTE | 2022-03-16 14:58 | NUR ---
Received from OR via [place], accompanied by Anesthesiologist DR RAMOS and report given by Anesthesiologist AND HAT PARTS CUTTER MACHINE. PT DROWSY, DENIES PAIN, PT CAME OUT W/LARYNGEAL SPASMS, PT SUCTIONED FOR SMALL AMT OF SECRETIONS, VSS, AFTER A FEW MINUTES THEY RESOLVED. ABDOMEN W/3 LAP SITES W/DERMABOND CDI. Addendum: 03/16/22 at 1526 by Yin Stokes RN Amended: Links added.
--- NOTE | 2022-03-16 17:38 | NUR ---
PT STATES THROAT FEELS MUCH BETTER, VSS, STATES PAIN IS MINIMAL. D/C INSTRUCTIONS GONE OVER W/PT AND PTS AND GIVEN TO PT. BOTH VERBALIZED UNDERSTANDING. PT STEADY AMBULATING. PT D/CD TO HOME VIA W/C TO PRIVATE VEHICLE W/O INCIDENT. Addendum: 03/16/22 at 1800 by Yin Stokes RN Amended: Links added.
== END 2022-03-16 17:38 | disposition home or self-care (01) ==
LOC: PAS 09:54
PROVIDERS: ATTEND Surgery
DX: K80.10 Calculus of gallbladder with chronic cholecystitis without obstruction (principal); F41.9 Anxiety disorder, unspecified; E66.9 Obesity, unspecified; Z68.31 Body mass index [BMI] 31.0-31.9, adult; Z88.2 Allergy status to sulfonamides; Z88.5 Allergy status to narcotic agent; Z88.8 Allergy status to other drugs, medicaments and biological substances; Z79.899 Other long term (current) drug therapy
CPT/HCPCS: 36415; 47562; 80053; 82948; 84703; 85025; J0694; J1100; J1885; J2250; J2274; J2405; J2704; J2710; J3490; J7030; J7120; Z7506; Z7508; Z7512; A4215; A4618; A7000